=== PATIENT | female | born 2005 | race Caucasian/White ===

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

== ENCOUNTER 2024-04-10 21:11 | Emergency (ER) | payer SELFPAY ==
[~2024-04-10] VITALS: Ht 162.6 cm; Wt 55.8 kg
[~2024-04-10 21:11] MED LIST: IBUP-1969 PO
[2024-04-10 21:20] VITALS: BP_SYST 101; PULSE 97; RESP 22; TEMP 96.6; O2SAT 97
[2024-04-10 22:16] LABS: BILIRUBIN,URINE NEGATIVE (NEGATIVE); BLOOD, URINE NEGATIVE (NEGATIVE); CLARITY/URINE CLEAR (CLEAR); COLOR,URINE YELLOW (YELLOW); GLUCOSE,URINE NEGATIVE (NEGATIVE); KETONES,URINE 1+ (NEGATIVE); LEUKOCYTE ESTERASE ,URINE NEGATIVE (NEGATIVE); NITRITE, URINE NEGATIVE (NEGATIVE); PROTEIN URINE TRACE (NEGATIVE); UROBILINOGEN,URINE 0.2 (0.2-1.0)
[2024-04-10 22:22] LABS: BACTERIA,URINE RARE /HPF (None Seen); MUCUS,URINE None Seen /LPF (None Seen); RBC,URINE 0-3 /HPF (0-3); WBC,URINE 0-3 /HPF (0-3)
[2024-04-10] MEDS: ONDANSETRON HCL 4 MG/2 ML VIAL IVP ONE (22:34)
[2024-04-10] MEDS: FAMOTIDINE PF 20 MG/2 ML VIAL IVP ONE (22:35)
[2024-04-10] MEDS: NACL 0.9% 1,000 ML IV ONE (22:36)
[2024-04-10 22:54] LABS: ALBUMIN 3.8 g/dL (3.4-4.8); BILIRUBIN,DIRECT 0.2 mg/dL (0.0-0.3); CALCIUM 8.4 mg/dL (8.4-11.0); CREATININE 0.77 mg/dL (0.55-1.30); POTASSIUM 3.5 mmol/L (3.5-5.1); TOTAL BILIRUBIN 0.9 mg/dL (0.0-1.0); TOTAL PROTEIN, SERUM 7.2 g/dL (6.4-8.3)
[2024-04-10 23:03] LABS: HEMATOCRIT 39.6 % (36-48); HEMOGLOBIN 13.2 g/dL (12.0-16.0); MEAN CORPUSCULAR HEMOGLOBIN 28 pg (27-31); MEAN CORPUSCULAR HGB CONC 33 % (32-36); MEAN CORPUSCULAR VOLUME 83 fL (79.0-98.0); PLATELET COUNT (AUTO) 240 K/uL (130-430); RED BLOOD CELL COUNT(AUTO) 4.79 MIL/uL (4.2-6.2); RED CELL DISTRIBUTION WIDTH 15.3 % (9.0-15.0); WHITE BLOOD COUNT (AUTO) 12.3 K/uL (4.5-11.0)
[2024-04-10 23:13] LABS: BAND % (MANUAL) 7 % (0-6); BASOPHILS % (MANUAL) 0 % (0-2); EOSINOPHILS % (MANUAL) 0 % (0-7); LYMPHOCYTES % (MANUAL) 9 % (20-46); MONOCYTES % (MANUAL) 5 % (0-11)
[2024-04-10] MEDS ORDERED: FAMO20TA8 PO (23:22)
[2024-04-10] MEDS ORDERED: ONDA-8 TL (23:22)
[2024-04-10 23:30] VITALS: BP_SYST 101; PULSE 97; RESP 22; TEMP 96.6; O2SAT 97
== END 2024-04-10 23:30 | disposition home or self-care (01) ==
LOC: SED 21:11
DX: R10.13 Epigastric pain (principal); R11.2 Nausea with vomiting, unspecified; Z79.899 Other long term (current) drug therapy
CPT/HCPCS: 99284; 96374; 96375; 85027; 80076; 80048; 81001; 83690; 85007; 36415; 81025; J3490; J2405; 81000; 81015